=== PATIENT | female | born 1965 | race Two or more races ===

== ENCOUNTER 2018-09-08 01:32 | Emergency (ER) | payer BC ==
[~2018-09-08] VITALS: Ht 160 cm; Wt 108.9 kg
[2018-09-08 02:28] LABS: Basophils # (auto) 0 uL; Basophils % (auto) 0.6 % (0.0-2.0); Eosinophils # (auto) 0.1 uL; Eosinophils % (auto) 0.8 % (0.0-7.0); Hemoglobin 14.4 g/dL (12.2-16.2); Lymphocytes # (auto) 1.7 uL; Lymphocytes % (auto) 23.3 % (10.0-50.0); Mean Corpuscular Hgb Conc. 34.4 g/dL (32.0-36.0); Mean Corpuscular Volume 87.3 fL (80.0-100.0); Monocytes # (auto) 0.5 uL; Monocytes % (auto) 6.2 % (0.0-12.0); Neutrophils % (auto) 69.1 % (37.0-80.0); Nucleated Red Blood Cells % 0.1 %; Platelet Count (auto) 200 10^3/uL (140-450); Red Blood Cells 4.81 10^6/uL (4.0-5.20); Red Cell Distribution Width 13.7 % (11.8-14.3); White Blood Cell 7.3 10^3/uL (4.4-10.8)
[2018-09-08 02:47] LABS: INR 0.97 (0.9-1.15); Partial Thromboplastin Time 30.3 sec (23.78-33.04); Prothrombin Time 10.4 sec (9.27-12.13)
[2018-09-08 02:48] LABS: Urine Bacteria FEW /hpf (None Seen); Urine Blood Negative /uL (Negative); Urine Hyaline Cast FEW /lpf (0 - 2); Urine Mucus FEW (None Seen); Urine Specific Gravity 1.035 (1.001-1.035); Urine WBC 5 /hpf (0 - 5)
[2018-09-08 02:50] LABS: Albumin 3.4 g/dL (3.4-5.0); Anion Gap 9 (5-15); Blood Urea Nitrogen 16 mg/dL (7-18); Calcium 8.8 mg/dL (8.5-10.1); Carbon Dioxide 23 mmol/L (21-32); Chloride 109 mmol/L (98-107); Glucose 97 mg/dL (74-106); Magnesium 2.1 mg/dL (1.6-2.6); Potassium 3.8 mmol/L (3.5-5.1); Sodium 141 mmol/L (136-145)
[2018-09-08 02:52] LABS: Alanine Aminotransferase 46 U/L (13-56); Aspartate Aminotransferase 24 U/L (15-37); BUN/Creatinine Ratio 21.1; GFR African American 102 mL/min; GFR Non-African American 84 mL/min
[2018-09-08 02:57] LABS: Alkaline Phosphatase 95 U/L (45-117); Bilirubin, Total 0.4 mg/dL (0.2-1.0); Total Protein 7.6 g/dL (6.4-8.2)
[2018-09-08 08:30] VITALS: BP 144/69
[2018-09-08] MEDS ORDERED: ASPirin 81 mg TAB PO ONE (08:30)
== END 2018-09-08 08:44 | disposition home or self-care (01) ==
LOC: ER 01:36
DX: F41.9 Anxiety disorder, unspecified (principal); R11.2 Nausea with vomiting, unspecified; R10.13 Epigastric pain; I10 Essential (primary) hypertension
CPT/HCPCS: 36415; 71046; 80053; 81001; 83735; 83880; 84484; 85025; 85610; 85730

== ENCOUNTER → 2024-08-03 | Outpatient (CLI) | payer MEDICAID ==
[~2024-08-03] VITALS: Ht 154.9 cm; Wt 112.5 kg
[2024-08-03] MEDS: REGADENOSON 0.4 MG/5 ML SYRG IV ONE (12:13)
--- NOTE | 2024-08-03 14:14 | DVHSR ---
APPROVED REPORT Exam: Nuclear Stress Test BMI: 0 Stress Test Details HR Max Heart Rate (APMHR): 159.361299 bpm Target HR (85% APMHR): 135.005698 bpm BP ECG Stress ECG Conclusion lvef 70% normal perfusion study no severe ischemia noted NM EXAM: Myocardial Perfusion REST/STRESS Imaging Protocol: Rest Tc-99m/Stress Tc-99m 1 day Resting Data Rest SPECT myocardial perfusion imaging was performed in supine position 60 minutes following the int ravenous injection of 12.9 mCi of Tc-99m Sestamibi. Time of rest injection: 1100 Time of rest imagin Administration Route: IV Administration Site: Right Hand Pharmacologic Stress Pharmacologic stress test was performed by injecting Regadenoson 0.4 mg IV push followed by the intra venous injection of 31 mCi of Tc-99m Sestamibi. Time of stress injection: 1213 Time of stress imagin Administration Route: IV Administration Site: Right Hand Gated Stress SPECT was performed 60 minutes after stress injection. The images were gated to evaluate regional wall motion and calculate left ventricular ejection fracti on. Stress only was performed in the Supine position. Nuclear Conclusion Nuclear Findings: negative for ischemia Left Ventricular Function: normal lvef 70% normal perfusion study no severe ischemia noted
== END | disposition home or self-care (01) ==
LOC: XYW 10:29
PROVIDERS: ATTEND Internal Medicine
DX: R07.9 Chest pain, unspecified (principal)
CPT/HCPCS: 78452; 93017; A9500

== ENCOUNTER 2025-01-25 15:42 | Emergency (ER) | payer MEDICAID ==
[~2025-01-25] VITALS: Ht 160 cm; Wt 107.4 kg
--- NOTE | 2025-01-25 16:38 | ED.PDOC ---
Shanita. trauma (HPI) HPI Comments 59 y/o F, with PMHx of HTN presents to the ED for CC of s/p fall. Patient states, she had a trip and fall over a toy at approximately 1400 landing on her right side. Following trauma, patient c/o right sided shoulder pain and right elbow pain. Patient denies head injury, LOC, nausea, vomiting, or headache. No other symptoms or modifying factors present at this time. Chief Complaint: Fall Injury Time Seen by MD: 16:00 Reviewed notes: Nurses Notes, Medications, Allergies Allergies: Coded Allergies: NO KNOWN ALLERGIES (Unverified , 08/03/24) Information Source: Patient Mode of Arrival: Ambulatory Severity: Moderate Timing: Hours Duration: Since onset Prehospital treatment: None Location: (R) Elbow, (R) Shoulder Location of laceration: None Mechanism: Fall Associated signs and symtoms: None Past Medical History PAST MEDICAL HISTORY: HTN Surgical History: Denies all surgeries [employer]IST History: Denies all [employer]IST Hx Family History Family History: Unknown Social History Smoker: Non-Smoker Alcohol: Denies ETOH Use Drugs: Denies Drug Use Lives In: Home Constitutional: denies: chills, diaphoresis, fatigue, fever, malaise, sweats, weakness, others EENTM: denies: blurred vision, double vision, ear bleeding, ear discharge, ear drainage, ear pain, ear ringing, eye pain, eye redness, hearing loss, mouth pain, mouth swelling, nasal discharge, nose bleeding, nose congestion, nose pain, photophobia, tearing, throat pain, throat swelling, voice changes, others Respiratory: denies: cough, hemoptysis, orthopnea, SOB at rest, shortness of breath, SOB with excertion, stridor, wheezing, others Cardiovascular: denies: chest pain, dizzy spells, diaphoresis, Dyspnea on exertion, edema, irregular heart beat, left arm pain, lightheadedness, palpitations, PND, syncope, others Gastrointestinal: denies: abdomen distended, abdominal pain, blood streaked bowels, constipated, diarrhea, dysphagia, difficulty swallowing, hematemesis, melena, nausea, poor appetite, poor fluid intake, rectal bleeding, rectal pain, vomiting, others Genitourinary: denies: abnormal vagina bleeding, burning, dyspareunia, dysuria, flank pain, frequency, hematuria, incontinence, pain, , vagina discharge, urgency, others Neurological: denies: dizziness, fainting, headache, left sided numbness, left sided weakness, numbness, paresthesia, pre-existing deficit, right sided numbness, right sided weakness, seizure, speech problems, tingling, tremors, weakness, others Musculoskeletal: reports: others (right shoulder pain, right elbow pain); denies: back pain, gout, joint pain, joint swelling, muscle pain, muscle stiffness, neck pain Integumetry: denies: bruises, change in color, change in hair/nails, dryness, laceration, lesions, lumps, rash, wounds, others Allergic/Immunocompromised: denies: Difficulty Healing, Frequent Infections, Hives, Itching, others Hematologic/Lymphatic: denies: anemia, blood clots, easy bleeding, easy bruising, swollen glands, others Endocrine: denies: excessive hunger, excessive sweating, excessive thirst, excessive urination, flushing, intolerance to cold, intolerance to heat, unexplained weight gain, unexplained weight loss, others Psychiatric: denies: anxiety, bipolar disorder, depression, hopeless, panic disorder, schizophrenia, sleepless, suicidal, others All Other Systems: Reviewed and Negative Physical Exam General Appearance: No Apparent Distress, Normal HEENT: Normal ENT Inspection, Pharynx Normal Neck: Full Range of Motion, Non-Tender, Normal, Normal Inspection Respiratory: Chest Non-Tender, Lungs Clear, No Accessory Muscle Use, No Respiratory Distress, Normal Breath Sounds Cardiovascular: No Edema, No Murmur, No Gallop, Normal Peripheral Pulses, Regular Rate/Rhythm Breast Exam: Deferred Gastrointestinal: No Organomegaly, Non Tender, No Pulsatile Mass, Normal Bowel Sounds, Soft Genitalia: Deferred Pelvic: Deferred Rectal: Deferred Extremities: No calf tenderness, Normal capillary refill, Normal inspection, Normal range of motion, Non-tender, No pedal edema Musculoskeletal : Location: Right Extremity Location: Elbow, Shoulder Apperance: Tenderness Neurologic: Alert, production checker II-XII nml as Tested, No Motor Deficits, Normal Affect, Normal Mood, No Sensory Deficits Cerebellar Function: Normal Reflexes: Normal Skin: Dry, Normal Color, Warm Lymphatic: No Adenopathy Was a procedure done? Was a procedure done?: No Differential Diagnosis Multiple Trauma: Fractures Neck Injury: Cervical Sprain, Cervical Strain X-Ray, Labs, Meds, VS Vital Signs Date Time Temp Pulse Resp B/P (MAP) Pulse Ox O2 Delivery O2 Flow Rate FiO2 01/25/25 15:45 98.3 79 15 144/84 95 98.3 [place] [address] Ph: [phone] DIAGNOSTIC IMAGING Diagnostic Imaging Report : [id number] Signed PATIENT: MAGED DAHLT: [id number] UNIT: [id number] : 1965 LOC: ER ROOM / BED: / AGE / SEX: 59 / F ADM STATUS: REG ER SERVICE 49 ORDERING PHYSICIAN: KERA INFANTE SCUDDING INSPECTOR PROCEDURE(s): RELB3 - R ELBOW 3 VIEW XRAY REASON: fall ORDER NUMBER(s): [id number], ACCESSION NUMBER(s): [id number] CLINICAL INDICATION: fall TECHNIQUE: XY R ELBOW 3 VIEW XRAY Comparison: None FINDINGS/IMPRESSION: There is no evidence of acute fracture or dislocation. Soft tissues are unremarkable. ATED BY: NHUNG MADRIGAL MD DICTATED DATE/TIME: 01/25/251755 SIGNED BY: NHUNG MADRIGAL MD SIGNED DATE/TIME: 01/25/251755 CC: [place] [address] Ph: [phone] DIAGNOSTIC IMAGING Diagnostic Imaging Report : [id number] Signed PATIENT: MAGED DAHLT: [id number] UNIT: [id number] : 1965 LOC: ER ROOM / BED: / AGE / SEX: 59 / F ADM STATUS: REG ER SERVICE 49 ORDERING PHYSICIAN: KERA INFANTE SCUDDING INSPECTOR PROCEDURE(s): RSHD2 - R SHOULDER 2+ VIEW XRAY REASON: fall ORDER NUMBER(s): [id number], ACCESSION NUMBER(s): [id number] CLINICAL INDICATION: fall TECHNIQUE: XY R SHOULDER 2+ VIEW XRAY Comparison: None FINDINGS/IMPRESSION: There is no evidence of acute fracture or dislocation. Soft tissues are unremarkable. ATED BY: NHUNG MADRIGAL MD DICTATED DATE/TIME: 01/25/251755 SIGNED BY: NHUNG MADRIGAL MD SIGNED DATE/TIME: 01/25/251755 CC: X-Ray, Labs, Meds, VS Comment Imaging was reviewed by this provider, there is no obvious pathological or acute disease process. Pending radiology review Labs were reviewed by this provider, no abnormalities Vital signs reviewed by this provider, clinically stable Time of 1ST Reevaluation: 16:30 Reevaluation 1ST: Unchanged Patient Education/Counseling: Diagnosis, Treatment, Need For Follow Up (Follow- up with PCP in the next 2-4 days. Return to the emergency department in the next 24-48 hours if symptoms worsen. He may) Family Education/Counseling: No Family Present Departure 1 Departure Time of Disposition: 18:50 Impression: Primary Impression: Contusion of right arm Qualified Codes: S40.021A - Contusion of right upper arm, initial encounter Disposition: HOME / SELF CARE / HOMELESS Condition: Fair e-Prescriptions Ibuprofen Micronized (Ibuprofen) 800 Mg Tab 800 MG PO TID PRN, #40 TAB Prov: AYANNA INFANTEER Sudhakar SCUDDING INSPECTOR 01/25/25 Discharged With: Self Critical Care Note Critical Care Time?: No Stability Stability form required: No Heart Score Heart Score: Heart Score Response (Comments) Value History N/A 0 EKG N/A 0 Age N/A 0 Risk Factors N/A 0 Troponin N/A 0 Total 0 I personally scribed for INFANTE,CONSTANZAOPHER E SCUDDING INSPECTOR (DVRUICH) on 01/25/25 at 16:38. Electronically submitted by Tea Collazo ([employer] I personally scribed for INFANTE,CHRISTOPHER E SCUDDING INSPECTOR ([place]) on 01/25/25 at 18:25. Electronically submitted by Tea Collazo ([employer] I personally scribed for INFANTE,CHRISTOPHER E SCUDDING INSPECTOR ([place]) on 01/25/25 at 18:26. Electronically submitted by Tea Collazo ([employer] INFANTE,CHRISTOPHER E SCUDDING INSPECTOR Jan 25, 2025 16:38
--- NOTE | 2025-01-25 17:58 | DVH ---
CLINICAL INDICATION: fall TECHNIQUE: XY R SHOULDER 2+ VIEW XRAY Comparison: None FINDINGS/IMPRESSION: There is no evidence of acute fracture or dislocation. Soft tissues are unremarkable.
--- NOTE | 2025-01-25 17:59 | DVH ---
CLINICAL INDICATION: fall TECHNIQUE: XY R ELBOW 3 VIEW XRAY Comparison: None FINDINGS/IMPRESSION: There is no evidence of acute fracture or dislocation. Soft tissues are unremarkable.
[2025-01-25] MEDS ORDERED: IBUP-1455 PO (18:53)
[2025-01-25 20:19] VITALS: BP 150/89; PULSE 69; RESP 12; TEMP 97.2; O2SAT 99
== END 2025-01-25 20:28 | disposition home or self-care (01) ==
LOC: ER 15:42
DX: S40.021A Contusion of right upper arm, initial encounter (principal); I10 Essential (primary) hypertension; W01.0XXA Fall on same level from slipping, tripping and stumbling without subsequent striking against object, initial encounter; Y93.89 Activity, other specified; Y92.89 Other specified places as the place of occurrence of the external cause; Y99.8 Other external cause status
CPT/HCPCS: 73030; 73080